=== PATIENT | female | born 1955 | race Asian ===

== ENCOUNTER 2019-02-21 23:59 | Emergency (ER) | payer MEDICAID ==
[~2019-02-21] VITALS: Ht 162.6 cm; Wt 79.4 kg
[2019-02-22] VITALS (7 sets, daily range): BP systolic 98–115; BP diastolic 66–73
--- NOTE | 2019-02-22 00:10 | NUR ---
ED Nurse Note: Patient brought in by RA due to increasing pain to back s/p fall x7 days ago, and blood sugar high at 490 upon arrival. Has hx of DM. As per daughter, patient is not taking any medication only lifestyle modification. BS 405 at ER. Alert and oriented x3, verbally responsive. No SOB. Breathing even and unlabored. Daughter at bedside.
--- NOTE | 2019-02-22 00:12 | Emergency Room Report ---
History of Present Illness General Chief Complaint: Back Pain-No Injury Source: Patient, Family Member Present Illness HPI Is a 63-year-old [place] female with a history of diabetes. She presents with chief complaint of back pain status post fall. This occurred more than a week ago. Patient had a mechanical fall and unable to get up. She is been on the ground for the last week. She is been wearing a diaper and having people fever on the floor. Finally she could not take the pain anymore and family called 911. Patient complained of mostly lower back and left hip pain. Unable to get up. No nausea no vomiting. No fever chills. She has been off of her diabetes medication for a month. Allergies: Coded Allergies: PENICILLINS (Verified Allergy, Unknown, 02/22/19) Patient History Past Medical History: see triage record, old chart reviewed, DM Past Surgical History: other Pertinent Family History: none Social History: Denies: smoking Now: No Immunizations: other Reviewed Nursing Documentation: PMH: Agreed; PSxH: Agreed Nursing Documentation-PMH Hx Diabetes: Yes Review of Systems Eye: Denies: eye pain, blurred vision ENT: Denies: ear pain, nose congestion, throat swelling Respiratory: Denies: cough, shortness of breath Cardiovascular: Denies: chest pain, palpitations Gastrointestinal: Denies: abdominal pain, diarrhea, nausea, vomiting Musculoskeletal: Reports: back pain, joint pain Skin: Denies: rash Neurological: Denies: headache, numbness Endocrine: Denies: increased thirst, increased urine Hematologic/Lymphatic: Denies: easy bruising All Other Systems: negative except mentioned in HPI Physical Exam Vital Signs Date Time Temp Pulse Resp B/P (MAP) Pulse Ox O2 Delivery O2 Flow Rate FiO2 02/22/19 00:00 98.2 118 16 111/80 (90) 97 Room Air Normal except for tachycardia Sp02 EP Interpretation: reviewed, normal General Appearance: well appearing, no apparent distress, alert Head: normocephalic, atraumatic Eyes: bilateral eye PERRL, bilateral eye EOMI ENT: hearing grossly normal, normal pharynx Neck: full range of motion, supple, no meningismus Respiratory: chest non-tender, lungs clear, normal breath sounds Cardiovascular #1: regular rate, rhythm, no murmur Gastrointestinal: normal bowel sounds, non tender, no mass, no organomegaly, no bruit, non-distended Musculoskeletal: back normal - Lumbar tenderness, normal range of motion, other - Left hip tenderness; tenderness over bilateral wrist. No deformity. Neurologic: alert, oriented x3 Psychiatric: mood/affect normal Procedures Critical Care Time Critical Care Time Critical care is mandated in this patient who presented with epidural abscess. Patient require my urgent intervention to attenuate the risks of metabolic collapse which may lead to cardiovascular collapse and . Critical care time is 35 minutes excluding any reportable procedure. Critical care time included evaluation, multiple reevaluation, looking at old charts, interpreting laboratory and diagnostic data, discussing case with patient and family and consultants, and charting. Medical Decision Making Diagnostic Impression: Primary Impression: Rapid atrial fibrillation Additional Impressions: Hyponatremia Hyperglycemia due to type 2 diabetes mellitus Qualified Codes: E11.65 - Type 2 diabetes mellitus with hyperglycemia Sepsis Qualified Codes: A41.9 - Sepsis, unspecified organism UTI (urinary tract infection) Qualified Codes: N30.00 - Acute cystitis without hematuria Compression fracture of T11 vertebra Qualified Codes: S22.080A - Wedge compression fracture of t11-T12 vertebra, initial encounter for closed fracture Epidural abscess Neurogenic bladder ER Course Patient presents with a fall about a week ago. She does have what appear to be new onset atrial fibrillation. CT scan significant for compression fracture and possible epidural abscess. Patient has no focal deficit. She does have a very distended bladder. Worrisome for neurogenic bladder. Pt has sensation to perineum and rectal area. There is no neurological deficit other than pain. Because of the possible epidural abscess, will transfer for higher level of care. I discussed the case with a neuro crime analyst fellow at [facility]. He except the patient for transfer to higher level care. Patient will be admitted under the attending Dr. Silverio. Lab Results Impression Labs with leukocytosis and hyponatremia EKG Diagnostic Results Rate: tachycardiac Rhythm: other - afib ST Segments: other - NSST changes Rhythm Strip Diag. Results EP Interpretation: yes Rate: 100 Rhythm: no PVC's, no ectopy, other - afib Chest X-Ray Diagnostic Results Chest X-Ray Diagnostic Results : Chest X-Ray Ordered: Yes # of Views/Limited/Complete: 1 View Indication: Shortness of Breath EP Interpretation: Yes Interpretation: no consolidation, no effusion, no pneumothorax, no acute cardiopulmonary disease Impression: No acute disease Electronically Signed by: Javier Medrano MD CT/MRI/US Diagnostic Results CT/MRI/US Diagnostic Results #1: Imaging Test Ordered: CT head Impression Per radiologist negative CT/MRI/US Diagnostic Results #2: Imaging Test Ordered: CT pelvis Impression Read by radiologist. No acute fracture within the pelvis. Markedly distended bladder with bilateral hydronephrosis. CT/MRI/US Diagnostic Results #3: Imaging Test Ordered: CT lumbar spine. Impression Read by radiologist. Acute T11 compression fracture. Compression fracture at L4. At the level of L4, there is market paraspinous soft tissue thickening and gas within the paraspinous tissue as well as within the epidural space. These findings can be seen in setting of infection. Last Vital Signs Date Time Temp Pulse Resp B/P (MAP) Pulse Ox O2 Delivery O2 Flow Rate FiO2 02/22/19 00:00 98.2 118 16 111/80 (90) 97 Room Air Status: improved Disposition: XFER [facility] Condition: Serious Javier Medrano MD Feb 22, 2019 00:12
[2019-02-22] MEDS ORDERED: Morphine Sulfate 4mg/ml Inj (IV USE ONLY) IVP ONE ×2 (00:15→09:45)
[2019-02-22 00:40] LABS: HEMATOCRIT 36.9 % (37.0-47.0); MEAN CORPUSCULAR VOLUME 86 FL (80-99); PLATELET COUNT 180 K/UL (150-450); RED BLOOD COUNT 4.28 M/UL (4.20-5.40); RED CELL DISTRIBUTION WIDTH 11.4 % (11.6-14.8)
[2019-02-22 00:45] LABS: BILIRUBIN, URINE NEGATIVE (NEGATIVE); COLOR,URINE YELLOW; GLUCOSE, URINE (UA) 4+ (NEGATIVE); KETONES,URINE NEGATIVE (NEGATIVE); LEUKOCYTE ESTERASE ,URINE 3+ (NEGATIVE); NITRITE,URINE NEGATIVE (NEGATIVE); PH,URINE 6.5 (4.5-8.0); PROTEIN,URINE 2+ (NEGATIVE); UROBILINOGEN,URINE NORMAL MG/DL (0.0-1.0)
[2019-02-22] MEDS ORDERED: Digoxin 0.5mg/2ml Inj IVP ONE (00:45)
[2019-02-22 00:46] LABS: APPEARANCE,URINE CLOUDY
--- NOTE | 2019-02-22 00:50 | NUR ---
ED Nurse Note: Xray done at bedside. Noted pt o2sat 91%, started pt on O2 tx @ 2LPM via nc. no sx resp distress noted except pt RR=30. ERMD notified. will cont monitor.
--- NOTE | 2019-02-22 00:54 | NUR ---
ED Nurse Note: Went down to CT.
[2019-02-22 00:55] LABS: ALANINE AMINOTRANSFERASE 27 U/L (12-78); ALBUMIN 2.2 G/DL (3.4-5.0); ALBUMIN/GLOBULIN RATIO 0.6 (1.0-2.7); ALKALINE PHOSPHATASE 133 U/L (46-116); ANION GAP 14 mmol/L (5-15); ASPARTATE AMINO TRANSFERASE 30 U/L (15-37); BILIRUBIN,TOTAL 1.1 MG/DL (0.2-1.0); BLOOD UREA NITROGEN 37 mg/dL (7-18); CALCIUM 8.6 MG/DL (8.5-10.1); CARBON DIOXIDE 20 MMOL/L (21-32); CHLORIDE 82 MMOL/L (98-107); CKMB 3.8 NG/ML (0.0-3.6); CREATINE KINASE 252 U/L (26-308); CREATININE 0.9 MG/DL (0.55-1.30); POTASSIUM 4.6 MMOL/L (3.5-5.1)
[2019-02-22 00:58] LABS: SODIUM 116 MMOL/L (136-145)
[2019-02-22 00:59] LABS: BILIRUBIN,DIRECT 0.6 MG/DL (0.0-0.3)
[2019-02-22] MEDS ORDERED: cefTRIAXone 1 GM in NS 55 ML IVPB ONE (01:00)
--- NOTE | 2019-02-22 01:00 | NUR ---
ED Nurse Note: ERMD notified for critical lab result, NA 116, elevated WBC. Will wait for further orders.
--- NOTE | 2019-02-22 01:28 | NUR ---
ED Nurse Note: Came back from CT.
[2019-02-22] MEDS ORDERED: LOTENSIN40 MG ORAL (01:39)
[2019-02-22] MEDS ORDERED: METOPROLOL SUCC25 MG ORAL (01:39)
[2019-02-22] MEDS ORDERED: AMLODIPINE BESY10 MG ORAL (01:39)
--- NOTE | 2019-02-22 01:45 | NUR ---
ED Nurse Note: Erika (daughter): [phone].
--- NOTE | 2019-02-22 02:20 | Diagnostic Imaging Report ---
Indications: Headache after falling Technique: Spiral acquisitions obtained through the brain. Angled axial and coronal 5 x 5 mm slices were reconstructed. Total dose length product 1393.68 mGycm. CTDI vol(s) 70.38 mGy. Dose reduction achieved using automated exposure control Comparison: None. Findings: There is a small parafalcine subdural hematoma on the left side of the central falx. This measures 1 to 2 mm in thickness, does not result in any significant mass effect. No other acute intracranial hemorrhage or edema. No mass effect nor midline shift. 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 There is mild enlargement of the extra-axial CSF spaces. Normal size ventricles. Visualized orbits and sinuses are unremarkable. Otherwise normal rosenberg-white differentiation. Impression: Small parafalcine subdural hematoma, not resulting in any significant mass effect is represents a discrepancy from the [facility] preliminary report. Critical value discrepant findings phoned to Dr. Finney in the emergency room at the time of interpretation, and [facility] was notified via their website No other significant acute bleed Mild cerebral cortical volume loss The CT scanner at [facility] is accredited by the [employer] and the scans are performed using protocols designed to limit radiation exposure to as low as reasonably achievable to attain images of sufficient resolution adequate for diagnostic evaluation.
[2019-02-22] MEDS ORDERED: dilTIAZem HCl 25mg/5ml Inj IVP ONE (02:30)
--- NOTE | 2019-02-22 02:32 | Diagnostic Imaging Report ---
Indications: Back pain after falling Technique: Spiral acquisitions obtained through the lumbar spine. Multiplanar reconstructions were generated. No IV contrast utilized. Total dose length product 765.68 mGycm. CTDIvol(s) 22.95 mGy. Dose reduction achieved using automated exposure control Comparison: none Findings: There is what appears to be an acute fracture line involving the inferior aspect of the T11 vertebral body. There is some associated lucency. No height loss is demonstrated there is no retropulsion. A thick rim of abnormal soft tissue is seen surrounding the T12 vertebral body. This measures up to 13 mm in thickness. Gas bubbles are seen within the soft tissue. Gas bubbles are also seen within the spinal canal. It is uncertain the extent to which the spinal canal is compromised by this process. There is a burst/compression fracture of the L1 vertebral body. This results in 80% height loss and some posterior retropulsion. There is evidence of prior T12 laminotomy, L1 and L2 laminectomies. There are bridging osteophytes connecting T12 and L1 anteriorly. There is some degenerative remodeling of the anterior aspect of T12. There is also a vertebral for compression fracture deformity of the L4 vertebral body. There is no definite retropulsion. There is about 30% height loss. The vertebral body appears sclerotic. No other acute fractures. No dislocations. At T11-12, there is bilateral facet arthrosis. This results in mild narrowing of the bilateral neural foramina. At T12-L1, facet arthrosis on the left results in severe narrowing of the neural foramen. The spinal canal is decompressed by the prior surgery. At L1-2, the neural foramina are preserved. The spinal canal is decompressed by the prior surgery. At L2-3, the neural foramina are preserved. The spinal canal is decompressed by the prior surgery. At the remaining disc levels, no significant disc bulge or protrusion, spinal stenosis, or neural foraminal stenosis. The bladder is massively distended. There is bilateral moderate hydronephrosis and hydroureter. There are retrococcygeal decubitus changes noted. Impression: Evidence of extensive inflammatory phlegmon surrounding the T11 vertebral body. Gas bubbles within the area of inflammation are suspicious for infection with a gas-forming organism. Gas bubbles within the spinal canal are concerning for infection/abscess within the epidural space. Nondisplaced inferior T11 vertebral body fracture, may be pathologic related to the above Severe compression fracture of the L1 vertebral body. Suspect chronic as there are secondary degenerative changes and evidence of prior posterior decompression L4 compression fracture, acuity indeterminant; sclerosis suggests chronicity but the presence of some fracture lines suggests acuity. Markedly distended urinary bladder Retrococcygeal decubitus changes Note that there is a discrepancy with the [facility] preliminary report; that report inadvertently describes the inflammatory changes surrounding L4 rather than T11. Described findings phoned to Dr. Finney in the emergency room at the time of interpretation. [facility] was notified via their website The CT scanner at [facility] is accredited by the [employer] and the scans are performed using protocols designed to limit radiation exposure to as low as reasonably achievable to attain images of sufficient resolution adequate for diagnostic evaluation.
--- NOTE | 2019-02-22 02:36 | Diagnostic Imaging Report ---
Indication: Pelvic pain after falling Technique: Noncontrast spiral acquisitions obtained through the pelvis. Multiplanar reconstructions generated. Total dose length product 429.12 mGycm. CTDIvol(s) 14.65 mGy. Dose reduction achieved using automated exposure control Comparison: none Findings: There is a superior endplate compression fracture deformity of the L4 vertebral body. This is described in a separate lumbar spine CT report. No acute pelvic fracture. Sclerotic densities in the left proximal femur may represent small bone infarcts. There is some edema of the presacral fat. There is soft tissue thickening of the retrococcygeal fat. The bladder is massively distended. The appendix is normal. The uterus and adnexal structures are unremarkable. There is generalized edema of the inferior gluteal region subcutaneous fat, extending laterally into the hips. Impression: L4 compression fracture, described in separate lumbar spine CT report No acute pelvic fracture Massively distended bladder Presacral fat soft tissue edema, nonspecific. Retrococcygeal soft tissue thickening, may indicate decubitus changes. Correlate with clinical findings This agrees with the preliminary interpretation provided overnight by [facility] teleradiology service. The CT scanner at [facility] is accredited by the [employer] and the scans are performed using protocols designed to limit radiation exposure to as low as reasonably achievable to attain images of sufficient resolution adequate for diagnostic evaluation.
--- NOTE | 2019-02-22 02:50 | NUR ---
ED Nurse Note: Per ERMD order, 16fr wade cath inserted by sterile technique, 10 cc ns inserted, 30 cc yellow cloudy urine returned, pt tolerated well w/o difficulty. total 2L urine removed.
--- NOTE | 2019-02-22 02:57 | NUR ---
ED Nurse Note: bedside accucheck done, BS 318 and Notified ERMD. per ERMD order, insulin order changed to 5units via IV.
[2019-02-22] MEDS ORDERED: Insulin Human Regular 100units/ml 3ml IV ONE ×2 (03:00→03:15)
[2019-02-22 05:23] LABS: ANION GAP 10 mmol/L (5-15); BLOOD UREA NITROGEN 24 mg/dL (7-18); CALCIUM 8.1 MG/DL (8.5-10.1); CARBON DIOXIDE 22 MMOL/L (21-32); CHLORIDE 91 MMOL/L (98-107); CREATININE 0.7 MG/DL (0.55-1.30); POTASSIUM 3.8 MMOL/L (3.5-5.1); SODIUM 123 MMOL/L (136-145)
--- NOTE | 2019-02-22 05:35 | NUR ---
ED Nurse Note: As per ERMD, D/C blood culture order. Pt is stable to transfer out.
--- NOTE | 2019-02-22 06:05 | NUR ---
ED Nurse Note: called daughter's cell phone, left voice mail regarding pt's care of plan.
--- NOTE | 2019-02-22 06:12 | NUR ---
ED Nurse Note: Report given to Annabel ROLAND from [facility].
--- NOTE | 2019-02-22 07:31 | NUR ---
HAND-OFF: Report given to Telma ROLAND, care endorsed. Patient alert and oriented. NO SOB. VSS. No further orders from MD at this time. Waiting for transportation.
--- NOTE | 2019-02-22 07:32 | NUR ---
ED Nurse Note: Received patient in bed, resting comforably in bed, patient attached on monitoring specialist.
--- NOTE | 2019-02-22 08:25 | NUR ---
ED Nurse Note: patient resting comfortably in bed. patient on paraprofessional aide teacher.
[2019-02-22] MEDS ORDERED: Morphine Sulfate 4mg/ml Inj (IV USE ONLY) ONE (09:35)
--- NOTE | 2019-02-22 09:39 | NUR ---
ED Nurse Note: patient being transferred to [facility] via [facility] on ACLS protocol. sister at bedside. patient transferred with all of her belongings.
--- NOTE | 2019-02-22 14:53 | Diagnostic Imaging Report ---
Indication: Shortness of breath Technique: One view of the chest Comparison: none Findings: The heart is enlarged. The aorta is tortuous ectatic and calcified. Impression: Cardiomegaly. No acute process
--- NOTE | 2019-02-25 15:30 | Cardiology Report ---
APPROVED REPORT EKG Measurement Heart [id number] Atrial fibrillation with rapid ventricular response Abnormal ECG
== END 2019-02-22 09:39 | disposition short-term general hospital (02) ==
LOC: EDBD 23:59 → EMR 02-22 00:15 → EDBEDREQSVC 02-22 00:48 → EDBEDREQ 02-22 00:48 → EDBEDREQTM 02-22 00:48 → UNDOADMIN 02-22 01:44 → 2E 02-22 01:44 → EDBEDREQ 02-22 02:24 → EMR 02-22 09:39
DX: A41.9 Sepsis, unspecified organism (principal); N30.00 Acute cystitis without hematuria; I48.91 Unspecified atrial fibrillation; E87.1 Hypo-osmolality and hyponatremia; S22.080A Wedge compression fracture of T11-T12 vertebra, initial encounter for closed fracture; E11.65 Type 2 diabetes mellitus with hyperglycemia; G06.2 Extradural and subdural abscess, unspecified; N31.9 Neuromuscular dysfunction of bladder, unspecified; Z88.0 Allergy status to penicillin; W01.0XXA Fall on same level from slipping, tripping and stumbling without subsequent striking against object, initial encounter; Y92.9 Unspecified place or not applicable
CPT/HCPCS: 36415; 70450; 71045; 72131; 72192; 73110; 80048; 80053; 81001; 82248; 82550; 82553; 82962; 83605; 84484; 85007; 85025; 87086; 87181; 93005; 96361; 96365; 96375; 99291; J0696; J1160; J1815; J2270; J2405